=== PATIENT | female | born 1960 | race African-American/Black ===

== ENCOUNTER 2021-01-07 14:18 | Outpatient (CLI) | payer BC | END 2021-01-07 14:19 | disposition home or self-care (01) | LOC: CSHMAMMO 14:18 | PROVIDERS: ATTEND Internal Medicine | DX: Z12.31 Encounter for screening mammogram for malignant neoplasm of breast (principal) | CPT/HCPCS: 77063; 77067 ==

== ENCOUNTER 2022-06-16 10:45 | Outpatient (CLI) | payer BC | END 2022-06-16 10:46 | disposition home or self-care (01) | LOC: CSHMAMMO 10:45 | PROVIDERS: ATTEND Internal Medicine | DX: Z12.31 Encounter for screening mammogram for malignant neoplasm of breast (principal) | CPT/HCPCS: 77063; 77067 ==

== ENCOUNTER 2024-11-25 09:26 | Outpatient (CLI) | payer MEDICARE | END 2024-11-25 09:27 | disposition home or self-care (01) | LOC: CSHSLEEP 09:26 | PROVIDERS: ATTEND Internal Medicine | DX: G47.33 Obstructive sleep apnea (adult) (pediatric) (principal); G47.00 Insomnia, unspecified; I10 Essential (primary) hypertension | CPT/HCPCS: 95810 ==